=== PATIENT | male | born 1960 | race Caucasian/White ===

== ENCOUNTER 2017-02-05 05:23 | Emergency (ER) | payer BC ==
[2017-02-05] MEDS ORDERED: ONDANSETRON HCL 4 MG/2 ML SOL IV ONE ×2 (05:29→08:58)
[2017-02-05] MEDS ORDERED: SODIUM CHLORIDE 0.9% 1000ML 1,000 ML IV ONE ×2 (05:29→07:25)
[2017-02-05] MEDS ORDERED: HYDROMORPHONE HCL 2 MG/ML SOL IV ONE ×3 (05:29→07:31)
[2017-02-05] MEDS ORDERED: ONDANSETRON HCL 4 MG/2 ML SOL ONE ×2 (05:30→08:59)
[2017-02-05] MEDS ORDERED: HYDROMORPHONE 1 MG/ML SYRINGE ONE ×3 (05:30→07:32)
[2017-02-05 05:55] VITALS: RESP 20; TEMP 98
[2017-02-05 06:57] LABS: APPEARANCE,URINE Clear; BILIRUBIN,URINE 1+ (NEGATIVE); COLOR,URINE Yellow; GLUCOSE, URINE (UA) NEGATIVE (NEGATIVE); KETONES,URINE 2+ (NEGATIVE); LEUKOCYTE ESTERASE ,URINE NEGATIVE (NEGATIVE); NITRATE,URINE NEGATIVE (NEGATIVE); OCCULT BLOOD,URINE 3+ (NEG-TRACE); UROBILINOGEN,URINE 0.2 (0.2-1.0 EU)
[2017-02-05 07:09] LABS: ICTOTEST,URINE NEGATIVE (NEGATIVE); WBC,URINE 0-2 (0-5AV/HPF)
[2017-02-05] MEDS ORDERED: HYDROMORPHONE 1 MG/ML SYRINGE IV PRN (07:34)
[2017-02-05] MEDS ORDERED: TAMSULOSIN HYDROCHLORIDE 0.4 MG CAP PO SCH (07:35)
[2017-02-05] MEDS ORDERED: TAMSULOSIN HYDROCHLORIDE 0.4 MG CAP ONE (07:38)
[2017-02-05 07:58] LABS: BASOPHILS % (AUTO) 0 % (0-3); EOSINOPHILS % (AUTO) 0 % (0-9); HEMATOCRIT 35 % (39-53); MEAN CORPUSCULAR HGB CONC 35.8 gm/dl (32.0-36.0); NEUTROPHILS % (AUTO) 87.1 % (37-80)
[2017-02-05 08:00] LABS: MEAN CORPUSCULAR VOLUME 80 fL (80-100)
[2017-02-05 08:10] LABS: ALBUMIN 3.6 gm/dl (3.4-5.0); CALCIUM 8.2 mg/dl (8.5-10.1); POTASSIUM 4.5 mMol/L (3.5-5.1)
[2017-02-05 11:33] VITALS: BP 133/87; PULSE 63; O2SAT 98
== END 2017-02-05 10:14 | disposition home or self-care (01) ==
LOC: ED 05:23
DX: N13.2 Hydronephrosis with renal and ureteral calculous obstruction (principal); R59.0 Localized enlarged lymph nodes; R91.8 Other nonspecific abnormal finding of lung field
CPT/HCPCS: 99285 ×3; 74176; 80053; 81001; 85025; J1170 ×3; J2405 ×2; Q9967; 36415; 71260; 96365; 96366; 96374; 96375; 99284